=== PATIENT | female | born 2000 | race Caucasian/White ===

== ENCOUNTER → 2023-09-13 15:42 | Outpatient (BNVA) | payer BC, SELFPAY | PROVIDERS: PCP General Practice; Visit Provider Surgery ==

== ENCOUNTER 2023-09-13 15:43 | Outpatient (AMB) | payer BC, SELFPAY ==
--- NOTE | 2023-09-13 15:42 | MHC.OFFVIS ---
Intake Vital Signs 09/13/23 15:47 Height 5 ft 4 in Weight 116 lb BMI 19.9 BP 113/65 Blood Pressure Location Rt brachial Position Sitting Pulse 84 Intake Visit Reasons: pilonidal cyst Intake Note: This patient presents for an assessment for pilonidal cyst. Patient c/o; Onset 2 months, reports occasional pain, reports drainage, reports no foul odor. Leaf Tinner Required: No Accompanied by: Self / Same As Patient Allergies No Known Allergies Allergy (Verified 09/13/23 15:48) Medication List - Last Reconciled 09/13/23 by Zan Chew MD No Known Home Meds HPI pilonidal cyst HPI Details [age] year old female referred for a pilonidal cyst. She has had this recurrent area of swelling and pain on the sacrococcygeal region. This gave him going on for about 2-3 months. She has had no I&D previously but she states that this has been uncomfortable and bothersome to her. She is otherwise healthy and denies any other significant medical issues. [facility] Medical History Sacrococcygeal pilonidal cyst Surgical History No pertinent past surgical history Family History Other Lymph node cancer Thyroid cancer Social History Alcohol intake: never Patient Tobacco Use Status: Never used Tobacco Review of Systems Const Denies chills and Denies fever(s) Card Denies chest pain, Denies dyspnea and Denies dyspnea on exertion Resp Denies cough, Denies dyspnea and Denies dyspnea on exertion GI Denies hematochezia and Denies change in bowel habits Denies hematuria Musc Denies back pain and Denies limited range of motion Neuro Denies focal weakness and Denies convulsions Psych Denies depression and Denies mood swings Physical Exam Vital Signs: Last Vital Signs Pulse 84 09/13/23 15:47 BP 113/65 09/13/23 15:47 BMI result Body Mass Index 19.9 Const General: comfortable and no acute distress Orientation/consciousness: patient oriented x3 Neck Neck: Yes no lymphadenopathy Resp Auscultation: clear to auscultation bilaterally Cardio Rhythm: regular rhythm GI Palpation (GI): Soft to palpation, nontender and no guarding Back/Spine/Pelvis Other: Sacrococcygeal area to the left of midline - induration measuring about 2.5 cm nonfluctuant, no discharge; midline pits noted within the gluteal cleft itself Neuro General: patient oriented x3 Assessment & Plan Assessment & Plan (1) Sacrococcygeal pilonidal cyst: Code(s): L05.91 - Pilonidal cyst without abscess Plan: She has findings consistent with a sacrococcygeal pilonidal cyst. This has been starting to bother her recurrent pain and swelling. She wants to proceed with excision. I had a long discussion with her about the technique of excision under anesthesia. I discussed the risks including but not limited to bleeding, infections, poor healing, postop pain, as well as the benefits and alternatives. I explained to her what to expect postoperatively regards to care. She wants to proceed. Coding Level of Care Code New Pt Level 3 (45396) Diagnoses Sacrococcygeal pilonidal cyst L05.91
[2023-09-13 15:47] VITALS: BP 113/65; PULSE 84; BMI 19.9
== END 2023-09-13 16:09 | disposition home or self-care (01) ==
PROVIDERS: PCP General Practice; Visit Provider Surgery
DX: L05.91 Pilonidal cyst without abscess (principal)
CPT/HCPCS: 99203

== ENCOUNTER 2023-10-05 07:58 | Day surgery (SDC) | payer BC, SELFPAY ==
[2023-10-03 08:20] VITALS: BMI 19.9
[2023-10-05] VITALS (8 sets, daily range): BP systolic 128–139; BP diastolic 78–91; PULSE 78–119; RESP 16–18; TEMP 36.3; O2SAT 100; BMI 20.4
--- NOTE | ~2023-10-05 | XR_ITS ---
EXAMINATION: XR PELVIS CLINICAL INFORMATION: Broken suture needle COMPARISON: None available. TECHNIQUE: AP view of the pelvis. FINDINGS: Radiopaque curvilinear structure measuring approximately 8 mm overlying the left mid/upper pelvis. Osseous structures are intact. Soft tissues are otherwise unremarkable XR/XR pelvis 1-2V IMPRESSION: Radiopaque curvilinear structure measuring approximately 8 mm overlying the left mid/upper pelvis.
--- NOTE | ~2023-10-05 | XR_ITS ---
EXAMINATION: XR PELVIS CLINICAL INFORMATION: Missing tip of suture needle COMPARISON: Pelvis radiograph from 10/05/2019 TECHNIQUE: AP view of the pelvis. FINDINGS: Redemonstrated radiopaque curvilinear structure presumably surgical needle the left mid/upper pelvis closed between the proximal region of the forceps. Osseous structures are intact. Soft tissues are unremarkable. XR/XR pelvis 1-2V IMPRESSION: Redemonstrated radiopaque curvilinear structure presumably surgical needle in the left mid/upper pelvis closed between the proximal region of the forceps.
--- NOTE | ~2023-10-05 | XR_ITS ---
EXAMINATION: XR PELVIS CLINICAL INFORMATION: Missing suture needle COMPARISON: Pelvis radiograph 10/05/2023 TECHNIQUE: AP view of the pelvis. FINDINGS: There has been interval removal of previously identified radiopaque structure in the left mid/upper pelvis presumably the suture needle with interval placement surgical wick. Osseous structures are intact. Soft tissues are unremarkable. XR/XR pelvis 1-2V IMPRESSION: Interval removal of previously identified radiopaque structure in the left mid/upper pelvis presumably the suture needle with interval placement of surgical wick.
[2023-10-05 08:23] LABS: UPreg QC Valid YES; Urine Pregnancy NEGATIVE (NEGATIVE)
--- NOTE | 2023-10-05 08:47 | MHC.SHP ---
Pre-Procedural Eval Section A - 24 Hr Update-Section A only Date of Service: 10/05/23 The patient is an INPATIENT: No Changes since office visit: No Cold of Flu in the past 2 weeks, No New Medical Problems, No Changes in Medication and No Patient answered all questions The patient has been examined within 24 hours of the surgical procedure. The History & Physical has been completed within 30 days and I have reviewed it.: Yes Section B - Complete if H&P > 30 days Chief Complaint: Pilonidal cyst without abscess Allergies: Allergies Allergy/AdvReac Type Severity Reaction Status Date / Time No Known Allergies Allergy Verified 09/13/23 15:48 Plan I have reviewed the history and physical and performed a pertinent physical examination on my patient. No changes have occurred unless specified. Time Spent With Patient Time: Total time managing care of this patient today ____ minutes.
[2023-10-05] MEDS: Lactated Ringers 1,000 ML 50 ML IVCONT (08:48)
--- NOTE | 2023-10-05 08:52 | HO.ANESPROP2 ---
PMFSH Active Problems Active Problems: All Active Problems (Updated 09/13/23 @ 16:02 by Zan Chew MD) Sacrococcygeal pilonidal cyst (Acute) Past Medical History Medical History Sacrococcygeal pilonidal cyst Functional capacity: independent ambulation Family History Family History Other Lymph node cancer Thyroid cancer Surgical History Surgical History No pertinent past surgical history History of Problems with Anesthesia: No Social History Social History Alcohol intake: never Patient Tobacco Use Status: Never used Tobacco Use of substances other than those prescribed or required for medical reasons: No Are you DNR?: No Advance Directives: No Advance Directives Information Provided: Yes Meds Allergies Allergy/AdvReac Type Severity Reaction Status Date / Time No Known Allergies Allergy Verified 09/13/23 15:48 Active Medications: Current Medications Lactated Ringer's (Lr) 1,000 mls @ 50 mls/hr IVCONT .Q20H MATILDE Last Admin: 10/05/23 08:48 Dose: 50 mls/hr Home Medications Medication Instructions Recorded Confirmed Last Taken Type loratadine 10 mg tablet (Claritin) 10 mg PO DAILY 10/05/23 10/05/23 Unknown History Exam Height,Weight and Vital Signs: Height 5 ft 4 in Weight 53.887 kg Last Vital Signs Temp 97.3 F 10/05/23 08:23 Pulse 104 H 10/05/23 08:23 Resp 18 10/05/23 08:23 BP 132/85 10/05/23 08:23 Pulse Ox 100 10/05/23 08:23 O2 Del Method Room Air 10/05/23 08:23 Pertinent Lab Results Pertinent Lab Results: Laboratory Tests 10/05/23 08:05 Urine Test NEGATIVE Airway Mallampati Class: II TM Dist: >3cm Neck ROM: Full Heart: RRR Lungs: CTA Assessment and Plan Assessment Anesthesia Assessment: Anesthesia Plan Discussed Final Anesthetic Review History of Problems with Anesthesia: No ASA Class: II Final Preanesthetic Review: Meds/Allgs Chart Reviewed, Consent Obtained/Reviewed and Anes Risks/Benef Reviewed Patient Risk: Low Procedure Risk: Low Anesthetic Plan Anesthetic Plan: GA Disposition: Standard PACU
--- NOTE | 2023-10-05 10:32 | P.OP_ITS ---
Operative Note Operative Note Date of Service: 10/05/23 Narrative: Preop diagnosis: Pilonidal cyst, sacrococcygeal area Postop diagnosis: The same Procedure: Excision of pilonidal cyst, sacrococcygeal area Surgeon: Zan Chew MD The patient is a 23-year-old female with note of an area of recurrent drainage, swelling and pain on the tailbone. Examination in the office showed findings consistent with a pilonidal cyst. The patient wanted to proceed with excision. She understood the technique of the procedure as well as the risks, benefits, and alternatives She was brought to the operating room and placed in prone position under general anesthesia via endotracheal tube. The buttocks were retracted with wide tape laterally. The sacrococcygeal area was prepped and draped in the usual sterile fashion. A surgical time-out was done. The patient received cefazolin 2 g IV preoperatively There was note of multiple midline pits within the gluteal cleft along with mild induration to the left of the midline. I infiltrated the planned line of incision with lidocaine 1%. I made an elliptical incision around this induration in the midline pits using a blade 15. This was carried down through the full-thickness of the skin as well as the subcutaneous layer electrocautery to include the entire indurated area. The excised area was about 6 cm long by about 2.[address] deep into the subcutaneous layer. I irrigated. I cauterized oozing areas. Once hemostasis was confirmed, I reapposed deep subcutaneous layer with multiple Polysorb 3-0 simple interrupted sutures. At one point, the tip of the needle, about 8 mm long broke off and we could not find it with direct visualization. We used x-rays to look for this needle. We are able to retrieve this with localization using the C-arm xray and this was in the subcutaneous layer on the left side. This was an approximately 7 mm length of needle. I then proceeded to close the subcutaneous layer again with multiple Polysorb 3- 0 interrupted sutures. Skin closure was achieved with nylon 3-0 simple interrupted sutures alternating with vertical mattress sutures. The area was infiltrated with Marcaine 0.5% for postop analgesia Dressings were applied. The procedure was completed The patient tolerated procedure well. There were no immediate complications. Initial and final counts of sponges and instruments were correct. Estimated blood loss was about 20 cc. The patient was extubated without difficulty and transferred to the recovery room with stable vital signs.
== END 2023-10-05 12:28 | disposition home or self-care (01) ==
PROVIDERS: Anesthesiology; PCP General Practice; Visit Provider Surgery
PROC: (CPT 11771; principal; 2023-10-05 09:30)
DX: L05.91 Pilonidal cyst without abscess (principal)
CPT/HCPCS: 11771; 72170; 81025; 88304; J0690; J1100; J1596; J2250; J2405; J2704; J2795; J3010

== ENCOUNTER → 2023-10-05 07:58 | Outpatient (BNV) | payer BC, SELFPAY | PROVIDERS: PCP General Practice; Visit Provider Surgery | DX: L05.91 Pilonidal cyst without abscess (principal) | CPT/HCPCS: 11772 ==

== ENCOUNTER → 2023-10-18 15:16 | Outpatient (BNVA) | payer BC, SELFPAY | PROVIDERS: PCP General Practice; Visit Provider Surgery | DX: Z48.02 Encounter for removal of sutures (principal) | CPT/HCPCS: 99211 ==

== ENCOUNTER 2023-11-01 08:40 | Outpatient (AMB) | payer BC, SELFPAY ==
--- NOTE | 2023-11-01 08:44 | A.OFFVIS_ITS ---
Intake Intake Visit Reasons: wound check s/p rosalinda cyst Intake Note: This patient presents for a wound check status post excision pilonidal cyst. Pt c/o; reports another cyst on the area. 10/05/2023: excision pilonidal cyst Certified Ophthalmic Assistant Required: No Accompanied by: Self / Same As Patient Allergies No Known Allergies Allergy (Verified 11/01/23 08:51) HPI wound check s/p rosalinda cyst HPI Details She had undergone excision of a pilonidal cyst last October 05, 2023. She tolerated procedure well. She denies significant pain or discharge. She does state that she feels a little bit of swelling to the left of the incision. [facility]END[facility] SALE TO [facility] Medical History Sacrococcygeal pilonidal cyst Surgical History No pertinent past surgical history Family History Other Lymph node cancer Thyroid cancer Social History Alcohol intake: never Patient Tobacco Use Status: Never used Tobacco Review of Systems Const Denies chills and Denies fever(s) Card Denies chest pain, Denies dyspnea and Denies dyspnea on exertion Resp Denies cough, Denies dyspnea and Denies dyspnea on exertion GI Denies hematochezia and Denies change in bowel habits Denies hematuria Musc Denies back pain and Denies limited range of motion Neuro Denies focal weakness and Denies convulsions Psych Denies depression and Denies mood swings Physical Exam Const General: comfortable and no acute distress Resp Effort & Inspection: normal respiratory effort Back/Spine/Pelvis Other: Excision site on the sacrococcygeal area clean, no evidence of infection, well healing, mild residual induration to the left of the incision Assessment & Plan Assessment & Plan (1) Sacrococcygeal pilonidal cyst: Code(s): L05.91 - Pilonidal cyst without abscess Plan: Status post excision. The incision is healing well. She there was a bit of residual induration to the left but I told her that this should improve with time. She can do warm soaks to the area. I advised her on good hygiene. I told her that if she has questions or concerns down the line, she should not hesitate to come back to the office. Her sutures had been removed. Coding Level of Care Code Global (31447) Diagnoses Sacrococcygeal pilonidal cyst L05.91
== END 2023-11-01 09:11 | disposition home or self-care (01) ==
PROVIDERS: PCP General Practice; Visit Provider Surgery
DX: L05.91 Pilonidal cyst without abscess (principal)
CPT/HCPCS: 99024

== ENCOUNTER → 2023-11-01 08:40 | Outpatient (BNVA) | payer BC, SELFPAY | PROVIDERS: PCP General Practice; Visit Provider Surgery ==